=== PATIENT | male | born 1965 ===

== ENCOUNTER 2021-09-01 10:23 | Inpatient (IN) | payer BC, SELFPAY ==
[2021-09-01] VITALS (10 sets, daily range): BP systolic 136–153; BP diastolic 71–93; PULSE 50–59; RESP 16–20; TEMP 36.1–36.8; O2SAT 96–98; BMI 38.6
--- NOTE | 2021-09-01 | ECHO_ITS ---
Patient Info Name: Jose Maria Lange Age: 55 years : 1965 Gender: Male Ht: 72 in Wt: 285 lbs BSA: 2.61 m2 HR: 49 bpm BP: 136 / 75 mmHg Heart Rhythm: Sinus Rhythm Technical Quality: Fair Exam Date: 09/01/2021 12:59 PM Exam Location: [facility] Pulmonary Exam Room: 201 Patient Status: Inpatient Admit Date: 09/01/2021 Staff Ordering Physician: Samra Mejía MD Online Advertising Manager: Rosario Mcconnell RDCS Attending Provider: Samra Mejía MD Exam Type: CA echo doppler color flow Study Info Indications - chest pain NSTEMI Complete two-dimensional, color flow and Doppler transthoracic echocardiogram is performed. Summary 1. Complete two-dimensional, color flow and Doppler transthoracic echocardiogram is performed. 2. Left ventricular chamber dimension is normal. 3. Left ventricular systolic function is normal, estimated at 50-55%. 4. No wall motion abnormalities were identified. 5. Mild aortic regurgitation and trivial mitral regurgitation. Left Ventricle Left ventricular chamber dimension is normal. Left ventricular systolic function is normal, estimated at 50-55%. The left ventricular diastolic function is normal. No wall motion abnormalities were identified. Right Ventricle Right ventricular chamber dimension is normal. Left Atria Left atrial chamber dimension is normal. Right Atria Right atrial chamber dimension is normal. Aortic Valve The aortic valve is trileaflet. There is mild aortic valve sclerosis. There is mild aortic valve regurgitation. Pulmonic Valve The pulmonic valve is normal. Mitral Valve The mitral valve has normal leaflets. There is trace mitral valve regurgitation. Tricuspid Valve The tricuspid valve leaflets are normal. There is trace tricuspid valve regurgitation. Pericardium/Pleural The pericardium appears normal. Aorta The aortic root size at the sinus of Valsalva is normal. Left Ventricular Outflow Tract Name Value Normal LVOT 2D LVOT Diameter 2.1 cm LVOT Doppler LVOT Peak Gradient 4 mmHg LVOT Mean Gradient 2 mmHg LVOT VTI 23 cm LVOT VTI/AV VTI Ratio 0.6 LVOT Stroke Volume 79 ml LVOT CO 15.6 l/min LVOT CI 6.0 l/min/m2 Pulmonic Valve Name Value Normal PV Doppler PV Peak Gradient 4 mmHg Mitral Valve Name Value Normal MV Doppler MV Decel [place] 246 cm/s2 MV PHT
[2021-09-01 11:02] LABS: Hematocrit 43.3 % (42.0-52.0); Mean Corpuscular HGB Conc 32.3 g/dl (32-36); Mean Corpuscular Volume 92.9 fl (80-100); Platelet Count Result 236 k/mm3 (150-375); Red Blood Count 4.66 M/mm3 (4.6-6.20); Red Cell Distribution Width 13.3 % (11.5-14.5); White Blood Count 5.6 K/mm3 (4.5-10.0)
--- NOTE | 2021-09-01 11:13 | ADMGEN ---
This patient, Jose Maria Lange, was admitted to IMU Room 201-01 at 1020. Patient/family oriented to hospital policies and general routines including ID bracelet, bed and alarms, visiting hours, pain management, procedures, bathroom and other care routines, personal items, smoking policy, room service/diet, and visiting hours. Information on how to activate the Rapid Response Team has been discussed. Patient/Family are encouraged to report perceived risks to care and to ask questions if they do not understand what they are told or what they should do.
[2021-09-01 11:14] LABS: Alanine Aminotransferase 31 U/L (4-50); Albumin Level 4.4 g/dL (3.5-5.1); Alkaline Phosphatase 71 U/L (38-126); Anion Gap 8 mmol/L (8-16); Aspartate Amino Transferase 44 U/L (17-59); Bilirubin,Total 0.8 mg/dL (0.2-1.3); Blood Urea Nitrogen 19 mg/dL (9-20); Calcium 8.9 mg/dL (8.4-10.2); Carbon Dioxide 29 mmol/L (22-30); Chloride 103 mmol/L (98-107); Estimated CRCL calculation 91 ml/min; Estimated Glomerular Filt Rate > 60; Glucose 107 mg/dL (65-110); Potassium 4.5 mmol/L (3.4-5.0); Sodium 140 mmol/L (137-145)
[2021-09-01 11:16] LABS: INR 1.1; Prothrombin Time 13.6 Seconds (11.1-14.7)
[2021-09-01 11:17] LABS: Partial Thromboplastin Time 70.5 SECONDS (22.3-36.8)
[2021-09-01] MEDS: HEPARIN SOD/D5W 100 UNITS/ML 25,000 UNITS/250 ML BAG 11 UNITS IV CONT (11:37)
--- NOTE | 2021-09-01 11:44 | ECG_ITS ---
Measurements Intervals [place] Rate: 58 P: 12 AR: 156 QRS: 5 QRSD: 100 T: 10 QT: 402 QTc: 397 Interpretive Statements SINUS BRADYCARDIA ST DEVIATION AND MODERATE T-WAVE ABNORMALITY, CONSIDER ANTERIOR ISCHEMIA [-0.1+ mV T WAVE IN V3/V4] NO PREVIOUS ECG AVAILABLE FOR COMPARISON Electronically Signed On 09-02-2021 7:55:39 CDT by Aaron Arredondo M.D.
--- NOTE | 2021-09-01 12:06 | PM.CNCAR ---
Assessment and Plan Additional Plan 55-year-old man without prior medical history he is significantly obese but otherwise no known medical problems other than this. He presents with onset of chest pain some atypical features but then some typical exertional features for the last 2-3 days. His ECG appears to show anterior T-wave inversion his troponin level at the referring emergency room was somewhat elevated and he was therefore heparinized and sent over here. He is currently asymptomatic. I am going to start aspirin, give him a loading dose of clopidogrel, start low-dose metoprolol and rosuvastatin. If he remains stable I will anticipate proceeding with coronary angiography on Friday. Certainly if he becomes more unstable we will proceed urgently Aaron Arredondo MD [facility] History of Present Illness History of Present Illness Consult date/time: 09/01/21 12:06 Consult reason: chest pain Reason For Visit: NSTEMI Narrative: This is a 55-year-old man I am seeing at the request of the hospitalist because of chest pain with evidence of acute coronary syndrome [facility]. He feels well at the moment does nice any symptoms he currently has an IV heparin drip running. He states that he has not been known to have any cardiac problems prior to this nor any significant medical problems although he admits to not seeing a physician regularly for any general medical care. He specifically however denies any knowledge of hypertension diabetes or dyslipidemia. He states that he has been having intermittent episodes of chest pain since Friday of this past week. He will have some episodes of a sharp central substernal pain that seem to come and go in an unpredictable fashion. He then also reports that he has some central chest pressure like discomfort that seems to occur when he exerts himself for the last several days on several occasions he tried to mow his grass and do yd work and he notices that he has to stop and let the symptoms subside. This is never been the case before and so finally yesterday he went to the emergency room at [place] for evaluation. Apparently he was seen in the emergency room over there and evaluated I do not have an EKG that is been transmitted over here for my review apparently his troponin level was mildly elevated he was heparinized and requests were made for transfer to this hospital this morning. He states that he has a family history of coronary artery disease in both parents his father has but of cancer not of his ?heart disease. He is not experiencing any orthopnea PND edema palpitations or syncope. ECG done here at [facility] while I was in the room shows sinus rhythm with anterior precordial T-wave inversion. Review of Systems Constitutional: Constitutional: Reports no additional constitutional complaints Eyes: Eyes: Reports no additional eye complaints ENT: Reports system reviewed and no additional complaints, except as documented Cardiovascular: Cardiovascular: Reports as per HPI Respiratory: Respiratory: Reports as per HPI Gastrointestinal: Gastrointestinal: Reports no additional gastrointestinal complaints Musculoskeletal: Musculoskeletal: Reports no additional musculoskeletal complaints Integumentary/Breasts: Skin/Breast: Reports system reviewed and no additional complaints, except as docu Neurologic: Reports system reviewed and no additional complaints, except as documented Endocrine: Endocrine: Reports no additional endocrine complaints Hematologic/Lymphatic: Hematologic/Lymphatic: Reports no additional hematologic/lymphatic complaints Allergic/Immunologic: Allergic/Immunologic: Reports no additional allergic/immunologic complaints [facility] Family History Family History (Updated 09/01/21 @ 11:35 by Genevieve Frances RN) Father Cancer Myocardial infarct Mother Myocardial infarct Social History Social History Smoking
[2021-09-01 14:27] LABS: Hematocrit 40.5 % (42.0-52.0); Hemoglobin 13.6 g/dL (14.0-18.0); Mean Corpuscular HGB Conc 33.6 g/dl (32-36); Mean Corpuscular Hemoglobin 29.7 pg (26-34); Mean Corpuscular Volume 88.4 fl (80-100); Mean Platelet Volume 9.9 fl (7.4-10.4); Platelet Count Result 237 k/mm3 (150-375); Red Blood Count 4.58 M/mm3 (4.6-6.20); Red Cell Distribution Width 13.2 % (11.5-14.5); White Blood Count 5.8 K/mm3 (4.5-10.0)
[2021-09-01 14:38] LABS: Anion Gap 7 mmol/L (8-16); Blood Urea Nitrogen 19 mg/dL (9-20); Calcium 8.7 mg/dL (8.4-10.2); Carbon Dioxide 27 mmol/L (22-30); Chloride 103 mmol/L (98-107); Cholesterol 157 mg/dL (0-200); Estimated CRCL calculation 91 ml/min; Estimated Glomerular Filt Rate > 60; Glucose 146 mg/dL (65-110); HDL Direct 31 mg/dL; INR 1.1; Potassium 3.7 mmol/L (3.4-5.0); Prothrombin Time 13.4 Seconds (11.1-14.7); Sodium 137 mmol/L (137-145); Triglycerides 88 mg/dL (<150)
[2021-09-01 14:48] LABS: LDL Cholesterol Direct 93 mg/dL
[2021-09-01 14:53] LABS: Troponin I 0.351 ng/mL (0.000-0.034)
--- NOTE | 2021-09-01 15:00 | PM.IMHP ---
H&P: HPI History of Present Illness Date/Time: 09/01/21 15:00 Chief Complaint: Chest pain. Narrative: This is a very pleasant 55-year-old male with no known medical history who was directly admitted to the IMU from an [facility] emergency department with a non ST elevation myocardial infarction after presenting with chest pain. He endorses several episodes of self-limiting substernal chest pain over the past 1 week which seems to occur most often with activity. It is described as sharp and pressure-like discomfort which radiates through to the back. With a brief rest, the discomfort has resolved however yesterday while outside mowing it lasted much longer despite rest and he sought treatment in the ER. He also mentions profuse diaphoresis at the onset of the chest pain yesterday though he denies associated lightheadedness, shortness of breath, nausea, and vomiting. His troponins were elevated and transfer was initiated to [facility] though there was still no bed available there today and he was transferred here to [place]. He is currently on heparin drip and has received aspirin and metoprolol at the outside facility. He is resting comfortably and he has no complaints, specifically denying recurrent pain today. He has no known history of coronary artery disease or significant medical history though he admits he has not seen a doctor for about 20 years. Review of Systems Review of Systems: 12 systems are reviewed. No fever, chills, or sweats. No recent cold or flu symptoms. No sick contacts. Occasional nausea in the morning with dry heaves. Occasional GERD symptoms as well. No melena or hematochezia. Admits to mild depression anxiety following a fairly recent divorce. Except as documented, all other systems were reviewed and are negative. [facility] Past Medical History Medical History (Updated 09/01/21 @ 20:29 by Tasha Christianson PA-C) Gastroesophageal reflux disease Surgical History Surgical History (Updated 09/01/21 @ 20:26 by Tasha Christianson PA-C) History of inguinal hernia repair History of vasectomy Family History Family History Father Cancer Myocardial infarct Mother Myocardial infarct Social History Social History (Updated 09/01/21 @ 20:28 by Tasha Christianson PA-C) Social History: Surrogate decision maker: Nikolay Lange, son. Code status: Full code. Smoking status: Never smoker Alcohol intake: never Substance use: never Living arrangements: alone Additional living arrangements comments: Resides in [place]. 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 Spiritual care concerns: No Meds Home Medications and Allergies Home Medications Medication Instructions Recorded Confirmed Type No Home Medications 09/01/21 09/01/21 History Allergies Allergy/AdvReac Type Severity Reaction Status Date / Time No Known Allergies Allergy Verified 09/01/21 13:59 Vital Signs Vital Signs - 24 hr 09/01/21 10:34 09/01/21 12:00 Temperature 98.3 F 97.0 F L Pulse Rate 53 L 54 L Respiratory Rate 18 16 Blood Pressure 153/92 H 136/75 Pulse Oximetry 96 97 Exam Narrative: General: A well-developed gentleman sitting up in bed in no distress. Weight: 128.5 kg. BMI: 38.4. HEENT: Normocephalic, atraumatic. PERRL, EOMI. Sclerae anicteric. Oral mucosa moist. Oropharynx clear. Neck: Supple. No JVD or lymphadenopathy. No carotid bruits. Respiratory: Lungs are clear to auscultation bilaterally. Cardiovascular: Regular rate and rhythm with S1-S2. Gastrointestinal: Abdomen is soft, nontender, and nondistended with positive bowel sounds. Skin: Warm and dry. No rash or lesions on limited exam. Extremities: No cyanosis, clubbing, or edema. Radial and pedal pulses intact. Neurological: Alert. Cranial nerves 2-12 are grossly intact. No gross focal deficits to casual
[2021-09-01] MEDS: CLOPIDOGREL BISULFATE 300 MG TABLET PO (15:28)
[2021-09-01] MEDS: ROSUVASTATIN 10 MG TABLET PO (15:28)
[2021-09-01] MEDS: METOPROLOL SUCCINATE EXT REL 25 MG TABCR PO (15:29)
[2021-09-01] MEDS: HEPARIN SODIUM 5,000 UNITS/ML VIAL 4000 UNITS IV PUSH (17:48)
[2021-09-01 17:53] LABS: Troponin I 0.362 ng/mL (0.000-0.034)
[2021-09-01 23:47] LABS: Partial Thromboplastin Time 81.1 SECONDS (22.3-36.8)
[2021-09-02] VITALS (15 sets, daily range): BP systolic 130–147; BP diastolic 73–83; PULSE 43–96; RESP 16–20; TEMP 36.1–37.2; O2SAT 94–100
--- NOTE | 2021-09-02 00:18 | PC.NURSE ---
Heparin drip reported at 15ml/hr at shift change by dayshift, drip checked by nightshift RN and running at 15ml/hr. Flowsheet in MAR charted as 14ml/hr by dayshift. PTT from 2300 reflected therapeutic. No change in rate at this time.
[2021-09-02] MEDS: HEPARIN SOD/D5W 100 UNITS/ML 25,000 UNITS/250 ML BAG 15 UNITS IV CONT ×2 (04:30→20:44)
[2021-09-02 07:11] LABS: Basophils Percent Auto 0.5 % (0.2-1.2); Eosinophils Absolute Auto 0.2 K/mm3 (0-0.3); Eosinophils Percent Auto 2.6 % (0-4.4); Hematocrit 41.8 % (42.0-52.0); Hemoglobin 13.6 g/dL (14.0-18.0); Immature Granulocyte Absolute 0.01 K/mm3 (0.00-0.031); Immature Granulocyte Percent A 0.2 % (0-0.5); Lymphocytes Absolute Auto 1.42 K/mm3 (0.9-3.2); Mean Corpuscular HGB Conc 32.5 g/dl (32-36); Mean Corpuscular Hemoglobin 29.5 pg (26-34); Mean Corpuscular Volume 90.7 fl (80-100); Mean Platelet Volume 10.2 fl (7.4-10.4); Monocytes Absolute Auto 0.5 K/mm3 (0.1-0.6); Neutrophils Absolute Auto 3.6 K/mm3 (1.3-6.7); Neutrophils Percent Auto 62.7 % (45.5-73.1); Platelet Count Result 233 k/mm3 (150-375); Red Blood Count 4.61 M/mm3 (4.6-6.20); Red Cell Distribution Width 13.2 % (11.5-14.5); White Blood Count 5.7 K/mm3 (4.5-10.0)
[2021-09-02 07:31] LABS: Partial Thromboplastin Time 66.1 SECONDS (22.3-36.8)
[2021-09-02] MEDS: HEPARIN SODIUM 5,000 UNITS/ML VIAL 4000 UNITS IV PUSH (07:58)
[2021-09-02] MEDS: ROSUVASTATIN 10 MG TABLET PO (08:03)
[2021-09-02] MEDS: METOPROLOL SUCCINATE EXT REL 25 MG TABCR PO (08:03)
[2021-09-02] MEDS: ASPIRIN 81 MG ENTERIC TABLET PO (08:04)
--- NOTE | 2021-09-02 10:57 | ECG_ITS ---
Measurements Intervals [place] Rate: 57 P: 6 TN: 143 QRS: 9 QRSD: 100 T: 11 QT: 372 QTc: 364 Interpretive Statements SINUS BRADYCARDIA ST & T-WAVE ABNORMALITY/CONSIDER ANTERIOR ISCHEMIA COMPARED TO ECG 09/01/2021 11:53:09 NO SIGNIFICANT CHANGES Electronically Signed On 09-03-2021 16:03:49 CDT by Aaron Arredondo M.D.
--- NOTE | 2021-09-02 11:00 | PM.PNCARD ---
Progress Note: A&P Additional Plan 55-year-old man presenting with intermittent chest pain for the last 5-7 days. He does have ECG abnormality with anterior T-wave inversions as well as elevation of troponin. The troponin pattern is unusual however for ACS being mildly elevated and flat. None the less we will proceed with angiography tomorrow and further recommendations will be forthcoming after that is completed. Aaron Arredondo MD [facility] Subjective Date/time seen: Date of service: 09/02/21 11:00 Interval history: Follow-up visit in this 55-year-old man with intermittent chest pain admitted yesterday with ECG abnormalities and elevated troponin. Patient is asymptomatic this morning IV heparin running he feels well offers no complaints. Discussed again plan for coronary angiography tomorrow morning he understands and is agreeable. Exam Const: General: comfortable and no acute distress Other: Obese gentleman no apparent distress Eyes: Sclera: sclerae normal Neck: Neck: supple and no JVD Resp: Effort & Inspection: normal respiratory effort Auscultation: clear to auscultation bilaterally Cardio: Rate: regular rate Rhythm: regular rhythm Other: PMI not palpable because of his size no murmur no gallop GI: GI Palp: Yes Soft to palpation Auscultation: normal bowel sounds Skin: General skin exam: normal color Extrem: General: normal to inspection Objective Data Vital Signs Vital Signs: Vital Signs - 24 hr 09/01/21 12:00 09/01/21 14:00 09/01/21 15:29 Temperature 36.1 C L Pulse Rate 54 L 53 L 54 L Respiratory Rate 16 Blood Pressure 136/75 Pulse Oximetry 97 09/01/21 16:00 09/01/21 18:00 09/01/21 20:00 Temperature 36.6 C 36.3 C L Pulse Rate 51 L 51 L 59 L Respiratory Rate 16 20 Blood Pressure 137/71 140/75 Pulse Oximetry 98 96 09/01/21 22:00 09/01/21 22:25 09/01/21 23:19 Temperature 36.1 C L Pulse Rate 52 L 53 L Respiratory Rate 20 Blood Pressure 140/93 H Pulse Oximetry 97 98 09/02/21 00:00 09/02/21 01:26 09/02/21 04:00 Temperature 36.1 C L Pulse Rate 46 L 46 L 51 L Respiratory Rate 20 Blood Pressure 138/76 Pulse Oximetry 97 04/24/22 05:48 09/02/21 07:53 09/02/21 08:00 Temperature 36.5 C Pulse Rate 43 L 52 L 54 L Respiratory Rate 16 Blood Pressure 134/75 Pulse Oximetry 96 96 09/02/21 08:03 Temperature Pulse Rate 57 L Respiratory Rate Blood Pressure Pulse Oximetry Intake/Output Intake/Output: Intake & Output 08/30/21 08/31/21 09/01/21 09/02/21 23:59 23:59 23:59 23:59 Intake Total 480 595 Output Total 600 Balance -120 595 Meds/Results Medications: Active Medications Generic Name Dose Route Start Last Admin Trade Name Freq PRN Reason Stop Dose Admin Aspirin 81 mg 09/02/21 09:00 09/02/21 08:04 Aspirin 81 Mg Enteric Tablet PO 81 mg QAM PRIYANKA Administration Heparin Sodium (Porcine) 4,000 units 09/01/21 10:38 09/02/21 07:58 Heparin Sodium 5,000 Units/Ml Vial IV PUSH 4,000 units PRN PRN Administration aPTT less than 55 seconds Heparin Sodium (Porcine) 4,000 units 09/01/21 10:38 Heparin Sodium 5,000 Units/Ml Vial IV PUSH PRN PRN aPTT 55 - 70 seconds Heparin Sodium/Dextrose 25,000 units in 250 mls @ 17 mls/hr 09/01/21 11:00 09/02/21 07:59 Heparin Sodium/D5w 100 Units/Ml IV CONT 1,700 units/hr .[id number] PRIYANKA 17 mls/hr Titration Protocol 1,700 UNITS/HR Sodium Chloride 500 mls @ 100 mls/hr 09/02/21 11:00 Normal Saline Iv IV CONT .Q5H PRIYANKA Metoprolol Succinate 25 mg 09/01/21 12:05 09/02/21 08:03 Metoprolol Succinate Ext Rel 25 Mg Tabcr PO 25 mg QAM PRIYANKA Administration Perflutren Lipid Microsphere 0 ml 09/01/21 12:02 Perflutren Lipid Microspheres 1.5 Ml Vial Diluted To 10 Ml Total Volume IV PUSH ONCE PRN adequate visualization Protocol Rosuvastatin Calcium 10 mg 09/01/21 12:05 09/02/21 08:03 Rosuvastatin 10
--- NOTE | 2021-09-02 11:54 | PM.IMPN ---
Progress Note: A&P Assessment and Plan (1) Non-ST elevated myocardial infarction: Code(s): I21.4 - Non-ST elevation (NSTEMI) myocardial infarction Status: Acute Assessment and Plan: Cardiology is following. Trend troponin. No chest pain noted today. NPO at midnight and plan for cardiac catheterization tomorrow. (2) Elevated blood pressure reading: Code(s): R03.0 - Elevated blood-pressure reading, without diagnosis of hypertension Status: Acute Assessment and Plan: Monitor and adjust blood pressure medications as needed. (3) Hyperglycemia: Code(s): R73.9 - Hyperglycemia, unspecified Status: Acute Assessment and Plan: Monitor blood sugars Subjective Date/time seen: 09/02/21 11:54 No chest pain today Exam Narrative: General: A well-developed gentleman sitting up in bed in no distress. Weight: 128.5 kg. BMI: 38.4. HEENT: Normocephalic, atraumatic. PERRL, EOMI. Sclerae anicteric. Oral mucosa moist. Oropharynx clear. Neck: Supple. No JVD or lymphadenopathy. No carotid bruits. Respiratory: Lungs are clear to auscultation bilaterally. Cardiovascular: Regular rate and rhythm with S1-S2. Gastrointestinal: Abdomen is soft, nontender, and nondistended with positive bowel sounds. Skin: Warm and dry. No rash or lesions on limited exam. Extremities: No cyanosis, clubbing, or edema. Radial and pedal pulses intact. Neurological: Alert. Cranial nerves 2-12 are grossly intact. No gross focal deficits to casual conversation. Psychiatric: Pleasant and cooperative with normal mood and affect. Judgment and insight intact. Objective Data Vital Signs Vital Signs: Vital Signs - 24 hr 09/01/21 12:00 09/01/21 14:00 09/01/21 15:29 Temperature 97.0 F L Pulse Rate 54 L 53 L 54 L Respiratory Rate 16 Blood Pressure 136/75 Pulse Oximetry 97 09/01/21 16:00 09/01/21 18:00 09/01/21 20:00 Temperature 97.8 F 97.3 F L Pulse Rate 51 L 51 L 59 L Respiratory Rate 16 20 Blood Pressure 137/71 140/75 Pulse Oximetry 98 96 09/01/21 22:00 09/01/21 22:25 09/01/21 23:19 Temperature 97 F L Pulse Rate 52 L 53 L Respiratory Rate 20 Blood Pressure 140/93 H Pulse Oximetry 97 98 09/02/21 00:00 09/02/21 01:26 09/02/21 04:00 Temperature 97 F L Pulse Rate 46 L 46 L 51 L Respiratory Rate 20 Blood Pressure 138/76 Pulse Oximetry 97 09/02/21 05:48 09/02/21 07:53 09/02/21 08:00 Temperature 97.7 F Pulse Rate 43 L 52 L 54 L Respiratory Rate 16 Blood Pressure 134/75 Pulse Oximetry 96 96 09/02/21 08:03 Temperature Pulse Rate 57 L Respiratory Rate Blood Pressure Pulse Oximetry Intake/Output Intake/Output: Intake & Output 08/30/21 08/31/21 09/01/21 09/02/21 23:59 23:59 23:59 23:59 Intake Total 480 595 Output Total 600 Balance -120 595 Meds/Results Medications: Active Medications Generic Name Dose Route Start Last Admin Trade Name Freq PRN Reason Stop Dose Admin Aspirin 81 mg 09/02/21 09:00 09/02/21 08:04 Aspirin 81 Mg Enteric Tablet PO 81 mg QAM PRIYANKA Administration Heparin Sodium (Porcine) 4,000 units 09/01/21 10:38 09/02/21 07:58 Heparin Sodium 5,000 Units/Ml Vial IV PUSH 4,000 units PRN PRN Administration aPTT less than 55 seconds Heparin Sodium (Porcine) 4,000 units 09/01/21 10:38 Heparin Sodium 5,000 Units/Ml Vial IV PUSH PRN PRN aPTT 55 - 70 seconds Heparin Sodium/Dextrose 25,000 units in 250 mls @ 17 mls/hr 09/01/21 11:00 09/02/21 07:59 Heparin Sodium/D5w 100 Units/Ml IV CONT 1,700 units/hr .[id number] PRIYANKA 17 mls/hr Titration Protocol 1,700 UNITS/HR Sodium Chloride 500 mls @ 100 mls/hr 09/02/21 11:00 Normal Saline Iv IV CONT .Q5H PRIYANKA Metoprolol Succinate 25 mg 09/01/21 12:05 09/02/21 08:03 Metoprolol Succinate Ext Rel 25 Mg Tabcr PO 25 mg QAM PRIYANKA Administration Perflutren Lipid Microsphere 0 ml 09/01/21 1
--- NOTE | 2021-09-02 12:00 | WPDGICN ---
Assessment and Plan Assessment and plan (1) Non-ST elevated myocardial infarction: Code(s): I21.4 - Non-ST elevation (NSTEMI) myocardial infarction Status: Acute Assessment and Plan: chest pain free now, he already received medical treatment and cardiology is planning to take him for cardiac cath (2) Gastroesophageal reflux disease: Code(s): K21.9 - Gastro-esophageal reflux disease without esophagitis Status: Inactive Assessment and Plan: he has not been worried enought to seek medical care or even take a medication we can do EGD as outpatient to assess but will defer in view of acute cardiac condition (3) Chest pain: Code(s): R07.9 - Chest pain, unspecified Status: Acute (4) Colon cancer screening: Code(s): Z12.11 - Encounter for screening for malignant neoplasm of colon Status: Acute Assessment and Plan: in near future also we can do colonoscopy GI Consult Note Consult date/time: 09/02/21 12:00 Reason for consult: gerd, dry heaves HPI: Jose Maria Lange is a 55 year old male who denies any significant medical problem however has not seen a physician for over 30 years here with progressive chest pain for last week, initially had intermittent sharp central substernal pain but then worse after exertion and mowing his grass, finally he went to [place] ER. He had mild elevated troponin with anterior T-wave inversions then transfer here for cardiology evaluation. He is not taking medication at home. Also for last 2-3 years sometimes will wake up in the morning with dry throat and sour taste- thinks that associated to acid/reflux however he is not taking any medication for that, also intermittent dry heaving but never gets sick, probably from phlegm or post nasal drip. Never had egd or colonoscopy. Review of Systems Constitutional: Constitutional: Denies headache(s) and Denies weakness Eyes: Eyes: Denies blurry vision ENT: Reports Normal hearing present, Denies headache(s) and Denies neck pain Cardiovascular: Cardiovascular: Reports chest pain and Denies dyspnea Respiratory: Respiratory: Denies dyspnea Gastrointestinal: Gastrointestinal: Reports heartburn Genitourinary: Genitourinary: Denies dysuria Musculoskeletal: Musculoskeletal: Denies neck pain Integumentary/Breasts: Skin/Breast: Denies dry skin Neurologic: Reports Normal hearing present, Denies headache(s) and Denies weakness Psychiatric: Psychiatric: Denies anxiety Endocrine: Endocrine: Denies change in body appearance Hematologic/Lymphatic: Hematologic/Lymphatic: Denies easy bleeding Allergic/Immunologic: Allergic/Immunologic: Denies urticaria PMFSH Past Medical History Medical History (Updated 09/02/21 @ 12:06 by Zander Alvares MD) Chest pain Colon cancer screening Gastroesophageal reflux disease Surgical History Surgical History (Updated 09/01/21 @ 20:26 by Tasha Christianson PA-C) History of inguinal hernia repair History of vasectomy Family History Family History Father Cancer Myocardial infarct Mother Myocardial infarct Social History Social History (Updated 09/01/21 @ 20:28 by Tasha Christianson PA-C) Social History: Surrogate decision maker: Nikolay Lange, sin. Code status: Full code. Smoking status: Never smoker Alcohol intake: never Substance use: never Living arrangements: alone Additional living arrangements comments: Resides in [place]. 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 Spiritual care concerns: No Meds Home Medications and Allergies Home Medications Medication Instructions Recorded Confirmed Type No Home Medications 09/01/21 09/01/21 History Allergies Allergy/AdvReac Type Severity Reaction Status Date / Time No Known Allergies Allergy Verified 09/01/21 13:59 Vital Signs V
[2021-09-02 12:32] LABS: Troponin I 0.195 ng/mL (0.000-0.034)
[2021-09-02] MEDS: SODIUM CHLORIDE 0.9% IV 500 ML 100 ML IV CONT ×2 (12:50→18:23)
[2021-09-02 14:25] LABS: Partial Thromboplastin Time 117.4 SECONDS (22.3-36.8)
[2021-09-02 20:59] LABS: Partial Thromboplastin Time 71.9 SECONDS (22.3-36.8)
[2021-09-03] VITALS (35 sets, daily range): BP systolic 108–157; BP diastolic 65–98; PULSE 43–73; RESP 10–22; TEMP 35.9–36.6; O2SAT 92–99
[2021-09-03 03:52] LABS: Partial Thromboplastin Time 77.4 SECONDS (22.3-36.8)
[2021-09-03] MEDS: SODIUM CHLORIDE 0.9% IV 500 ML 100 ML IV CONT (06:01)
[2021-09-03] MEDS: ASPIRIN 81 MG ENTERIC TABLET PO (08:02)
--- NOTE | 2021-09-03 09:45 | P.SEDATION_ITS ---
Moderate Sedation Note-Pt Data Patient Data Diagnosis: acute coronary syndrome Present Complaint: intermittent chest pain Procedure to be performed/Plan: left heart catheterization Allergies Allergy/AdvReac Type Severity Reaction Status Date / Time No Known Allergies Allergy Verified 09/01/21 13:59 Home Medications Medication Instructions Recorded Confirmed Type No Home Medications 09/01/21 09/01/21 History Current Medications: Active Medications Aspirin (Aspirin 81 Mg Enteric Tablet) [facility] Last Admin: 09/03/21 08:02 Dose: 81 mg Documented by: Aspirin (Aspirin 81 Mg Chewable Tablet) 81 mg PO DAILY@0800 [facility] Clopidogrel Bisulfate (Clopidogrel Bisulfate 75 Mg Tablet) 75 mg PO DAILY [facility] Heparin Sodium (Porcine) (Heparin Sodium 5,000 Units/Ml Vial) 4,000 units IV PUSH PRN PRN PRN Reason: aPTT less than 55 seconds Last Admin: 09/02/21 07:58 Dose: 4,000 units Documented by: Heparin Sodium (Porcine) (Heparin Sodium 5,000 Units/Ml Vial) 4,000 units IV PUSH PRN PRN PRN Reason: aPTT 55 - 70 seconds Heparin Sodium/Dextrose (Heparin Sodium/D5w 100 Units/Ml) 25,000 units in 250 m ls @ 15 mls/hr IV CONT .[id number] [facility]; Protocol Last Titration: 09/03/21 08:00 Dose: 1,500 units/hr, 15 mls/hr Documented by: Sodium Chloride (Normal Saline Iv) 500 mls @ 100 mls/hr IV CONT .Q5H [facility] Last Admin: 09/03/21 06:01 Dose: 100 mls/hr Documented by: Sodium Chloride (Normal Saline Iv) 1,000 mls @ 125 mls/hr IV CONT .Q8H ONE Stop: 09/03/21 17:40 Losartan Potassium (Losartan Potassium 25 Mg Tablet) 25 mg PO DAILY [facility] Metoprolol Succinate (Metoprolol Succinate Ext Rel 25 Mg Tabcr) [facility] Last Admin: 09/02/21 08:03 Dose: 25 mg Documented by: Nitroglycerin (Nitroglycerin Sl 0.4 Mg Tablet) 0.4 mg SUBLINGUAL Q5MIN PRN PRN Reason: Chest Pain Perflutren Lipid Microsphere (Perflutren Lipid Microspheres 1.5 Ml Vial Diluted To 10 Ml Total Volume) 0 ml IV PUSH ONCE PRN; Protocol PRN Reason: adequate visualization Rosuvastatin Calcium (Rosuvastatin 10 Mg Tablet) 10 mg PO QAM [facility] Last Admin: 09/02/21 08:03 Dose: 10 mg Documented by: Rosuvastatin Calcium (Rosuvastatin 10 Mg Tablet) 20 mg PO DAILY [facility] Sedation/Anesthesia: No previous sedation/anesthesia problems (including family history). [facility] Past Medical History Medical History (Updated 09/02/21 @ 12:06 by Zander Alvares MD) Chest pain Colon cancer screening Gastroesophageal reflux disease Surgical History Surgical History (Updated 09/01/21 @ 20:26 by Tasha Christianson PA-C) History of inguinal hernia repair History of vasectomy Family History Family History Father Cancer Myocardial infarct Mother Myocardial infarct Social History Social History (Updated 09/01/21 @ 20:28 by Tasha Christianson PA-C) Social History: Surrogate decision maker: Nikolay Lange, son. Code status: Full code. Smoking status: Never smoker Alcohol intake: never Substance use: never Living arrangements: alone Additional living arrangements comments: Resides in [place]. 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 Spiritual care concerns: No Mod Sed Physical Exam Physical Exam Pre Procedural Exam: Normal: Neck, Throat, Airway, Lungs, Heart Rate, Heart
--- NOTE | 2021-09-03 09:45 | WPDMODSED ---
Moderate Sedation Note-Pt Data Patient Data Diagnosis: acute coronary syndrome Present Complaint: intermittent chest pain Procedure to be performed/Plan: left heart catheterization Allergies Allergy/AdvReac Type Severity Reaction Status Date / Time No Known Allergies Allergy Verified 09/01/21 13:59 Home Medications Medication Instructions Recorded Confirmed Type No Home Medications 09/01/21 09/01/21 History Current Medications: Active Medications Aspirin (Aspirin 81 Mg Enteric Tablet) [facility] Last Admin: 09/03/21 08:02 Dose: 81 mg Documented by: Aspirin (Aspirin 81 Mg Chewable Tablet) 81 mg PO DAILY@0800 [facility] Clopidogrel Bisulfate (Clopidogrel Bisulfate 75 Mg Tablet) 75 mg PO DAILY [facility] Heparin Sodium (Porcine) (Heparin Sodium 5,000 Units/Ml Vial) 4,000 units IV PUSH PRN PRN PRN Reason: aPTT less than 55 seconds Last Admin: 09/02/21 07:58 Dose: 4,000 units Documented by: Heparin Sodium (Porcine) (Heparin Sodium 5,000 Units/Ml Vial) 4,000 units IV PUSH PRN PRN PRN Reason: aPTT 55 - 70 seconds Heparin Sodium/Dextrose (Heparin Sodium/D5w 100 Units/Ml) 25,000 units in 250 mls @ 15 mls/hr IV CONT .[id number] [facility]; Protocol Last Titration: 09/03/21 08:00 Dose: 1,500 units/hr, 15 mls/hr Documented by: Sodium Chloride (Normal Saline Iv) 500 mls @ 100 mls/hr IV CONT .Q5H [facility] Last Admin: 09/03/21 06:01 Dose: 100 mls/hr Documented by: Sodium Chloride (Normal Saline Iv) 1,000 mls @ 125 mls/hr IV CONT .Q8H ONE Stop: 09/03/21 17:40 Losartan Potassium (Losartan Potassium 25 Mg Tablet) 25 mg PO DAILY [facility] Metoprolol Succinate (Metoprolol Succinate Ext Rel 25 Mg Tabcr) [facility] [place] Last Admin: 09/02/21 08:03 Dose: 25 mg Documented by: Nitroglycerin (Nitroglycerin Sl 0.4 Mg Tablet) 0.4 mg SUBLINGUAL Q5MIN PRN PRN Reason: Chest Pain Perflutren Lipid Microsphere (Perflutren Lipid Microspheres 1.5 Ml Vial Diluted To 10 Ml Total Volume) 0 ml IV PUSH ONCE PRN; Protocol PRN Reason: adequate visualization Rosuvastatin Calcium (Rosuvastatin 10 Mg Tablet) 10 mg PO QAM [facility] Last Admin: 09/02/21 08:03 Dose: 10 mg Documented by: Rosuvastatin Calcium (Rosuvastatin 10 Mg Tablet) 20 mg PO DAILY [facility] Sedation/Anesthesia: No previous sedation/anesthesia problems (including family history). [facility] Past Medical History Medical History (Updated 09/02/21 @ 12:06 by Zander Alvares MD) Chest pain Colon cancer screening Gastroesophageal reflux disease Surgical History Surgical History (Updated 09/01/21 @ 20:26 by Tasha Christianson PA-C) History of inguinal hernia repair History of vasectomy Family History Family History Father Cancer Myocardial infarct Mother Myocardial infarct Social History Social History (Updated 09/01/21 @ 20:28 by Tasha Christianson PA-C) Social History: Surrogate decision maker: Nikolay Lange, son. Code status: Full code. Smoking status: Never smoker Alcohol intake: never Substance use: never Living arrangements: alone Additional living arrangements comments: Resides in [place]. 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 Spiritual care concerns: No Mod Sed Physical Exam Physical Exam Pre Procedural Exam: Normal: Neck, Throat, Airway, Lungs, Heart Rate, Heart Rhythm, Neuro Exam and Extremities and Variation: Appearance ( overweight gentleman no apparent distress) and Heart Size ( PMI not palpable) Hours since solid foods: 12 Hours since liquid intake: 12 Mallampati Classification: class II Internal Medicine - PN: Obj Da Vital Signs Vital Signs: Vital Signs - 24 hr 09/02/21 10:00 09/02/21 12:00 09/02/21 14:00 Temperature 37.2 C Pulse Rate 53 L 55 L 55 L Respiratory Rate 20 Blood Pressure 136/83 Pulse Oximetry 96 09/02/21 16:00 09/02/21 18:00 09/02/21 20:00 Temperature 36.8 C 36.6 C
--- NOTE | 2021-09-03 09:47 | WPDCARDPROC ---
Cardiac Cath Procedure Note Date of procedure:: 09/03/21 Performing physician:: Aaron Arredondo MD Indication:: this is a 55-year-old man without prior history of heart disease who entered the hospital over the weekend with episodes of chest discomfort both with and without exertion of recent onset. Electrocardiogram shows anterior T-wave inversion and troponin levels are modestly elevated. In this setting and angiogram has been recommended Brief clinical history:: as above Procedure Procedure performed:: left ventriculogram coronary angiogram PCI (FLACA) to the mid LAD Sedation/Medication given:: fentanyl 50 mg Versed 2 mg case start 848 a.m. case end time 9:32 a.m. Access site:: right femoral artery Estimated blood loss:: 30 cc Procedure note:: patient was brought to the cardiac catheterization lab in the postabsorptive state where the right femoral triangle was prepared and draped in the usual sterile fashion. Anesthesia was provided with 1% lidocaine infiltrated locally. Using the modified Seldinger technique a 5 [place] sheath was placed into the right femoral artery. After this I used a 5 [place] angled pigtail catheter to measure left-sided hemodynamics and to inject LV g in the CEDEÑO projection. After this the left coronary artery was engaged and injected using a 5 [place] FL4 catheter. The right coronary artery was injected using a standard 5 [place] JR4 catheter. The cineangiograms were then reviewed and PCI of the LAD was recommended carried out as detailed below. Prior to PCI the 5 [place] sheath was exchanged over the guidewire for a 6 [place] sheath. The patient was systemically anticoagulated using bolus and infusion of Angiomax. He received baby aspirins and 600 mg of clopidogrel prior to PCI. 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 Findings:: Hemodynamics: Central aortic pressure was 138 over 76 left ventricle 140/5 end-diastolic pressure 16 there is no gradient on pullback across the aortic valve. Left ventricle: The LV is mildly enlarged. The anterior wall is mildly hypodynamic the global ejection fraction is visually estimated to be 45-50%. The left main coronary artery is large in caliber and nicely patent the left anterior descending is a moderate to large caliber artery. There is a long area of significant stenosis just after the major diagonal branch takes its origin. The major diagonal is large And takes off proximally. This lesion was not seen in till I obtain the [place] caudal projection which the LAD from the diagonal. The remainder of the LAD is free of significant stenosis. Circumflex is a large caliber vessel giving rise to the marginal branches is angiographically is unremarkable. the right coronary artery is large caliber and dominant to the posterior circulation and is smooth and free of disease. Intervention: The left coronary artery was engaged using 6 [place] CLS 3.5 guiding catheter. I used a 0.014 BMW guidewire to traverse the stenosis in the LAD and advanced the wire to the apical portion of the LAD. The lesion was pre-dilated using a 3 x 20 mm [place] balloon. The lesion was then stented using a 3.5 x 26 mm [place] deployed 12 atmospheres with very good angiographic result the lesion has no residual stenosis disruption dissection or distal embolization. Conclusion:: 1. Unstable angina/acute coronary syndrome with single-vessel coronary artery disease patient has significant stenosis in the left anterior descending just after the major diagonal branch takes origin 2. mild ischemic LV dysfunction with hypokinesia of the anterior wall 3. successful revascularization of this lesion using the drug-eluting stent described above with a good angiographic resu
[2021-09-03] MEDS: SODIUM CHLORIDE 0.9% IV 1,000 ML 125 ML IV CONT (12:00)
--- NOTE | 2021-09-03 13:38 | PM.IMPN ---
Progress Note: A&P Assessment and Plan (1) Non-ST elevated myocardial infarction: Code(s): I21.4 - Non-ST elevation (NSTEMI) myocardial infarction Status: Acute Assessment and Plan: Patient presents to the ED with complaints of chest pain. Trop was 0.40 but trended down from there. EKG showing T wave inversion in the anterior leads. Patient was treated appropriately including Heparin drip. Cardiology was consulted and patient went to cardiac catheterization that showed an LAD stenosis just after the major diagonal branch. He underwent PCI with FLACA placement. He tolerated the procedure well. Medical management with ASA, Crestor, Plavix, Cozaar and Toprol. (2) Elevated blood pressure reading: Code(s): R03.0 - Elevated blood-pressure reading, without diagnosis of hypertension Status: Acute Assessment and Plan: Patient's blood pressure was reviewed on 09/03 Blood pressure was mildly elevated at times but better controlled with the addition of Metoprolol and Cozaar. Will continue current medications. Monitor and adjust blood pressure medications as needed. (3) Hyperglycemia: Code(s): R73.9 - Hyperglycemia, unspecified Status: Acute Assessment and Plan: Glucose was 146 the other day. Monitor blood sugars with sliding scale. Check A1c (4) CAD (coronary artery disease): Code(s): I25.10 - Atherosclerotic heart disease of [place] coronary artery without angina pectoris Status: Acute Assessment and Plan: As above. (5) LV dysfunction: Code(s): I51.9 - Heart disease, unspecified Status: Acute Assessment and Plan: Echo showing EF 50-55% with only mild AI. LHC shows EF 45-50%. Probably decreased due to the NSTEMI. Continue Toprol XL and Cozaar. (6) Suspected sleep apnea: Code(s): R29.818 - Other symptoms and signs involving the nervous system Status: Acute Assessment and Plan: Sleep apnea was suspected and apnea link ordered. AHI 65 and RI 68 with a majority unclassified apneic events. Patient spent 90 minutes with SpO2<88%. Will need to be set up for outpatient sleep study. Subjective Date/time seen: 09/03/21 13:38 Interval history: 55yo man with GERD admitted for chest pain and found to have NSTEMI. Patient is back from his [facility]. He feels well. He did not have any chest pain with the procedure. He denies CP now. No SOB. No n/v. Eating okay. Currently at bedrest. Exam Narrative: AF 97.9 108/87 44 12 92% ra Gen - NARD lying almost flat in bed feeding himself lunch Chest - CTA bilaterally anteriorly and in the flanks, nml RR CV - RRR S1/S2. Abd - Soft, NT/ND, Positive BS Ext - No pedal edema. Right groin site dressing clean and dry. 2+ DP bilaterally Neuro - Alert and oriented. Nonfocal exam. Psych - Nml mood and affect Skin - Warm and dry Objective Data Vital Signs Vital Signs: Vital Signs - 24 hr 09/02/21 14:00 09/02/21 16:00 09/02/21 18:00 Temperature 98.3 F Pulse Rate 55 L 48 L 57 L Pulse Rate [Right Pedal (Dorsalis Pedis)] Respiratory Rate 16 Blood Pressure 133/73 Pulse Oximetry 95 09/02/21 20:00 09/02/21 22:00 09/02/21 23:31 Temperature 97.9 F 97.1 F L Pulse Rate 54 L 46 L 43 L Pulse Rate [Right Pedal (Dorsalis Pedis)] Respiratory Rate 20 20 Blood Pressure 147/79 H 130/78 Pulse Oximetry 96 100 09/03/21 00:00 09/03/21 02:00 09/03/21 03:06 Temperature 97.4 F L Pulse Rate 47 L 43 L 61 Pulse Rate [Right Pedal (Dorsalis Pedis)] Respiratory Rate 20 Blood Pressure 139/88 Pulse Oximetry 99 09/03/21 04:00 09/03/21 05:49 09/03/21 08:02 Temperature 97.9 F Pulse Rate 48 L 45 L 54 L Pulse Rate [Right Pedal (Dorsalis Pedis)] Respiratory Rate 22 H Blood Pressure 127/70 Pulse Oximetry 98 09/03/21 09:54 09/03/21 10:00 09/03/21 10:15 Temperature Pulse Rate 50 L 48 L 49 L Pulse Rate [Right Pedal (Dorsalis Pedis)] 50 L Re
--- NOTE | 2021-09-03 14:42 | PCRCNOTE ---
SETTING UP PATIENT WITH NOCTURNAL O2 AND CPAP WITH [facility].
[2021-09-03 17:08] LABS: Glucose Point of Care 104 mg/dl (65-105)
[2021-09-03 20:26] LABS: Glucose Point of Care 173 mg/dl (65-105)
[2021-09-04] VITALS (11 sets, daily range): BP systolic 137–144; BP diastolic 75–83; PULSE 42–60; RESP 20–22; TEMP 36.1–36.3; O2SAT 95–98
[2021-09-04 05:13] LABS: Hemoglobin A1C 5.7 % (<5.7)
[2021-09-04 05:36] LABS: Anion Gap 6 mmol/L (8-16); Blood Urea Nitrogen 16 mg/dL (9-20); Calcium 8.6 mg/dL (8.4-10.2); Carbon Dioxide 26 mmol/L (22-30); Chloride 105 mmol/L (98-107); Estimated CRCL calculation 99 ml/min; Estimated Glomerular Filt Rate > 60; Glucose 100 mg/dL (65-110); Potassium 3.9 mmol/L (3.4-5.0); Sodium 137 mmol/L (137-145)
[2021-09-04 07:59] LABS: Glucose Point of Care 100 mg/dl (65-105)
[2021-09-04] MEDS: METOPROLOL SUCCINATE EXT REL 25 MG TABCR PO (08:22)
[2021-09-04] MEDS: ROSUVASTATIN 10 MG TABLET 20 MG PO (08:22)
[2021-09-04] MEDS: CLOPIDOGREL BISULFATE 75 MG TABLET PO (08:22)
[2021-09-04] MEDS: LOSARTAN POTASSIUM 25 MG TABLET PO (08:22)
[2021-09-04] MEDS: ASPIRIN 81 MG CHEWABLE TABLET PO (08:22)
--- NOTE | 2021-09-04 10:34 | PM.PNCARD ---
Progress Note: A&P Assessment and Plan (1) CAD (coronary artery disease): Code(s): I25.10 - Atherosclerotic heart disease of [place] coronary artery without angina pectoris Status: Acute Assessment and Plan: Single vessel CAD with significant stenosis of the LAD that was treated with placement of a 3.5x26mm [place] FLACA with good anatomical result. EF 45-50%. Continue ASA Continue plavix Continue statin Continue losartan Continue metoprolol Aggressive risk modification for CAD Stable from a cardiac perspective today and appropriate for discharge home with short interval follow up as an outpatient. (2) Chest pain: Code(s): R07.9 - Chest pain, unspecified Status: Acute Assessment and Plan: Secondary to CAD (3) Non-ST elevated myocardial infarction: Code(s): I21.4 - Non-ST elevation (NSTEMI) myocardial infarction Status: Acute Assessment and Plan: Presented with complaints of chest pain for 5-7 days. He did have elevated troponin levels and anterior T-wave inversions on his EKG. Therefore, he was taken to the cardiac cath laboratory technician and was found have single-vessel coronary artery disease as detailed above. Subjective Date/time seen: 09/04/21 10:34 Cardiology follow up for CAD I feel great. Patient does not have any complaints this morning. Wondering when he can go home. He denies any chest pain, shortness of breath, palpitations. Review of Systems Constitutional: Constitutional: Reports no additional constitutional complaints Eyes: Eyes: Reports no additional eye complaints ENT: Reports system reviewed and no additional complaints, except as documented Cardiovascular: Cardiovascular: Reports as per HPI Respiratory: Respiratory: Reports as per HPI Gastrointestinal: Gastrointestinal: Reports no additional gastrointestinal complaints Musculoskeletal: Musculoskeletal: Reports no additional musculoskeletal complaints Integumentary/Breasts: Skin/Breast: Reports system reviewed and no additional complaints, except as docu Neurologic: Reports system reviewed and no additional complaints, except as documented Endocrine: Endocrine: Reports no additional endocrine complaints Hematologic/Lymphatic: Hematologic/Lymphatic: Reports no additional hematologic/lymphatic complaints Allergic/Immunologic: Allergic/Immunologic: Reports no additional allergic/immunologic complaints Exam Const: General: comfortable and no acute distress Other: Obese gentleman no apparent distress HENMT: Mouth: Yes moist mucous membranes Eyes: Sclera: sclerae normal Pupils: Equal, round and reactive pupils present Neck: Neck: supple and no JVD Resp: Effort & Inspection: normal respiratory effort Auscultation: clear to auscultation bilaterally Cardio: Rate: regular rate Rhythm: regular rhythm Heart sounds: S1 normal heart sound present, S2 normal heart sound present and no murmurs Peripheral pulses: Peripheral pulses 2+ throughout GI: Auscultation: normal bowel sounds Skin: General skin exam: normal color Other: Right groin arterial access site free from bleeding, hematoma, bruit. Neuro: Cranial nerves: Yes Equal, round and reactive pupils present Cognition (Neuro): normal cognition Extrem: General: normal to inspection Objective Data Vital Signs Vital Signs: Vital Signs - 24 hr 09/03/21 10:45 09/03/21 11:00 09/03/21 11:15 Temperature Pulse Rate 49 L 49 L 45 L Pulse Rate [Right Pedal (Dorsalis Pedis)] Respiratory Rate 14 14 14 Blood Pressure 132/93 H 121/81 Pulse Oximetry 95 96 93 09/03/21 11:36 09/03/21 11:41 09/03/21 11:46 Temperature Pulse Rate 44 L 44 L 43 L Pulse Rate [Right Pedal (Dorsalis Pedis)] 50 L 50 L Respiratory Rate 18 16 14 Blood Pressure 127/81 146/98 H 131/84 Pulse Oximetry 96 97 95 09/03/21 11:51 09/03/21 12:00 09/03/21 12:06 Temperature Pulse Rate 44 L 46 L Pulse Rate [Right Pedal (Dorsalis Pedis)] 44 L 46 L Respi
[2021-09-04 11:34] LABS: Glucose Point of Care 121 mg/dl (65-105)
--- NOTE | 2021-09-04 12:12 | PM.DS ---
DS: Admitting Diagnosis Discharge Date 09/04/21 Admitting Diagnosis Chest pain DS: Discharge Diagnosis Discharge Diagnosis (1) Non-ST elevated myocardial infarction: Code(s): I21.4 - Non-ST elevation (NSTEMI) myocardial infarction Status: Acute Assessment and Plan: Patient presents to the ED with complaints of chest pain. Trop was 0.40 but trended down from there. EKG showing T wave inversion in the anterior leads. Patient was treated appropriately including Heparin drip. Cardiology was consulted and patient went to cardiac catheterization 09/03/21 that showed a LAD stenosis just after the major diagonal branch. He underwent PCI with FLACA placement. He tolerated the procedure well. Please see report for details. Medical management with ASA, Crestor, Plavix, Cozaar and Toprol. (2) Elevated blood pressure reading: Code(s): R03.0 - Elevated blood-pressure reading, without diagnosis of hypertension Status: Acute Assessment and Plan: Patient's blood pressure was monitored closely and was mildly elevated at times. It became better controlled with the addition of Metoprolol and Cozaar. (3) Hyperglycemia: Code(s): R73.9 - Hyperglycemia, unspecified Status: Acute Assessment and Plan: Glucose was 146. We monitored his blood sugars with sliding scale and they remained well controlled. A1c 5.7. (4) CAD (coronary artery disease): Code(s): I25.10 - Atherosclerotic heart disease of [place] coronary artery without angina pectoris Status: Acute Assessment and Plan: As above. (5) LV dysfunction: Code(s): I51.9 - Heart disease, unspecified Status: Acute Assessment and Plan: Echo showing EF 50-55% with only mild AI. LHC shows EF 45-50%. EF probably decreased due to the NSTEMI. He was started on Toprol XL and Cozaar. (6) Suspected sleep apnea: Code(s): R29.818 - Other symptoms and signs involving the nervous system Status: Acute Assessment and Plan: Sleep apnea was suspected and apnea link ordered. AHI 65 and RI 68 with a majority unclassified apneic events. Patient spent 90 minutes with SpO2<88%. We tried to repeat the sleep study on 2Liters but patient had the study without oxygen in place. He qualifies for home CPAP but no units available at this time so plan to send home with supplemental O2 at night at 2Liters until CPAP becomes available. He will need an outpatient split night sleep study for definitive diagnosis and titration. Spoke with cardiology who will arrange for this since patient does not have a primary care doctor. (7) Gastroesophageal reflux disease: Code(s): K21.9 - Gastro-esophageal reflux disease without esophagitis Status: Acute Assessment and Plan: Patient has symptoms of acid reflux worse at night. 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 He has acid taste in his mouth. He denies metallic taste. He then coughs up phlegm that is blood tinged. He has been doing this for over a year. No weight loss. He does not smoke. Does not chew tobacco. GI was consulted here but no intervention was performed. Appreciate their input. Plan to have follow-up with GI. DS: Summary Hospital Course Reason for hospitalization: 55yo man with GERD admitted for chest pain and found to have NSTEMI. Please see H&P for details Hospital Course: Please see above for details of hospital course. Status at Discharge Cognitive/behavioral status at discharge: Stable Time Spent with Patient Time attestation: Total time spent providing and/or coordinating discharge services: 34 minutes Time spent: Greater than 30 minutes Exam Narrative: AF 97.4 137/76 60 20 98% ra Gen - NARD Chest - CTA bilaterally, nml RR CV - RRR S1/S2; Tele showing no significant dysrhythmias Abd - Soft, NT/ND, Positive BS Ext - No pedal edema. Negative Homans sign
== END 2021-09-04 14:28 | disposition home or self-care (01) | DRG 247 ==
PROVIDERS: Chiropractor; Specialist; Admitting Provider Family Medicine; Visit Provider Internal Medicine
PROC: 4A023N7 Measurement of Cardiac Sampling and Pressure, Left Heart, Percutaneous Approach (ICD-10-PCS; CPT 93452; principal; 2021-09-03 08:30)
PROC: 027034Z Dilation of Coronary Artery, One Artery with Drug-eluting Intraluminal Device, Percutaneous Approach (ICD-10-PCS; 2021-09-03 08:30)
DX: I21.4 Non-ST elevation (NSTEMI) myocardial infarction (principal); I25.10 Atherosclerotic heart disease of native coronary artery without angina pectoris; R03.0 Elevated blood-pressure reading, without diagnosis of hypertension; R73.9 Hyperglycemia, unspecified; G47.30 Sleep apnea, unspecified; K21.9 Gastro-esophageal reflux disease without esophagitis
CPT/HCPCS: 36415; 80048; 80053; 80061; 82948; 83036; 84484; 85025; 85027; 85610; 85730; 93005; 93306; 93458; 94762; A9270; C1725; C1769; C1874; C1887; C1894; C9600; J0583; J1644; J2250; J3010; J7030; J7040